=== PATIENT | male | born 1940 | race Caucasian/White ===

== ENCOUNTER 2020-10-19 07:49 | Outpatient (CLI) | payer MEDICARE, BC ==
[2020-10-19 13:35] LABS: SARS-CoV-2 PCR by NAA Not Detected (NotDetected)
== END 2020-10-19 07:50 | disposition home or self-care (01) ==
LOC: CSHLAB 07:49
PROVIDERS: ATTEND Internal Medicine
DX: Z20.822 Contact with and (suspected) exposure to COVID-19 (principal); K22.5 Diverticulum of esophagus, acquired; R10.13 Epigastric pain
CPT/HCPCS: 87635; U0003; U0005